=== PATIENT | female | born 2000 | race Caucasian/White ===

== ENCOUNTER → 2020-09-11 15:49 | Outpatient (CLI) | payer OTHER, SELFPAY ==
--- NOTE | ~2020-09-11 | XR_ITS ---
EXAMINATION: XR abdomen obstructive series DATE: 09/11/2020 16:03 INDICATION: Low central abdominal pain and constipation TECHNIQUE: Frontal supine and upright views of the abdomen were obtained. COMPARISON: None. FINDINGS: Small amount of gas and moderate amount of stool scattered throughout the colon. No dilated loops of gas-filled bowel to suggest obstruction. No free intraperitoneal gas. A few phleboliths in the left h emipelvis. Visualized lung bases are clear. Heart size is normal. Mild lumbar dextrocurvature. IMPRESSION: 1. Nonobstructive bowel gas pattern with moderate amount of colonic stool. Reviewed, dictated and finalized at location B. FIELD TECHNICIAN
== END ==
PROVIDERS: PCP Family Medicine; Visit Provider Family Medicine
DX: R10.9 Unspecified abdominal pain (principal)
CPT/HCPCS: 74019